=== PATIENT | male | born 1990 | race Two or more races ===

== ENCOUNTER 2024-05-24 15:14 | Emergency (ER) | payer OTHER ==
[~2024-05-24] VITALS: Ht 157.5 cm; Wt 65.8 kg
[2024-05-24] MEDS ORDERED: XOLEGEL45 GM TOP (18:23)
[2024-05-24] MEDS ORDERED: FLUCONAZOLE150 MG PO (18:23)
== END 2024-05-24 18:58 | disposition home or self-care (01) ==
LOC: ER 15:16
DX: M94.0 Chondrocostal junction syndrome [Tietze] (principal); Z88.6 Allergy status to analgesic agent; B49 Unspecified mycosis